=== PATIENT | male | born 1995 | race Caucasian/White ===

== ENCOUNTER → 2018-05-20 15:03 | Outpatient (CLI) | payer OTHER, SELFPAY ==
--- NOTE | 2018-05-20 15:02 | DI.REPORT_ITS ---
SYMPTOMS/DIAGNOSIS: S/P CLOSED REDUCTION AND PERCUTANEOUS PINNING, LEFT RING FINGER LEFT HAND: Three views. Comparison is 05/12/18. There has been no change in alignment of the nondisplaced oblique fracture through the ulnar aspect of the base of the distal phalanx of the left middle finger. There are again seen two percutaneous pins transfixing the fracture of the middle phalanx of the left ring finger. No change in alignment of the orthopedic hardware or fracture components is noted.
== END ==
PROVIDERS: PCP Family Medicine; Visit Provider Physician Assistant
DX: S62.625D Displaced fracture of middle phalanx of left ring finger, subsequent encounter for fracture with routine healing (principal); X58.XXXD Exposure to other specified factors, subsequent encounter
CPT/HCPCS: 73130

== ENCOUNTER → 2018-06-15 08:01 | Outpatient (CLI) | payer OTHER, SELFPAY ==
--- NOTE | 2018-06-15 07:49 | DI.REPORT_ITS ---
SYMPTOM/DIAGNOSIS: F/U FX LEFT HAND: Three views. Comparison is made with 05/20/18. There are again seen two pins transfixing the fracture of the middle phalanx of the left ring finger. The fracture and orthopedic hardware appear stable in alignment. The fracture line is still visualized. There is mild soft tissue swelling of the left ring finger. No new fractures or dislocations are present.
== END ==
PROVIDERS: PCP Family Medicine; Visit Provider Physician Assistant
DX: S62.92XD Unspecified fracture of left hand, subsequent encounter for fracture with routine healing (principal)
CPT/HCPCS: 73130

== ENCOUNTER 2020-07-14 14:42 | Outpatient (CLI) | payer SELFPAY ==
[2020-07-17 17:55] LABS: Patient Race White; SARS-CoV-2 RNA Undetected (Undetected); SARS-CoV-2 Specimen Source Nasopharynx
== END 2020-07-14 15:02 ==
PROVIDERS: PCP Family Medicine; Visit Provider Family Medicine
DX: Z11.59 Encounter for screening for other viral diseases (principal)
CPT/HCPCS: U0003

== ENCOUNTER 2024-01-02 13:42 | Emergency (ER) | payer BC, SELFPAY ==
[2024-01-02 13:46] VITALS: BP 141/84; PULSE 73; RESP 18; TEMP 36.8; O2SAT 98
--- NOTE | 2024-01-02 14:16 | ED.GENADUL_ITS ---
Discharge Plan Disposition Patient Disposition: Home Condition: Stable Discharge Details Clinical Impression: Acute pain of left wrist Primary Care Provider: Yaneli Villanueva ED Provider: Katheryn Mcclelland Discharge Instructions Additional Instructions: Take ibuprofen 400 to 600 mg every 8 hours for the next 5 days, use your splint during the day and you may remove at night while you are sleeping, wear the splint for at least 3 to 5 days see if it improves your discomfort Recommendation for follow-up with primary care physician with persistent pain Return with spreading redness, fever, change in discomfort, you may also apply topical diclofenac gel which is [id number] and take Tylenol 650 every 4-6 hours as needed Referrals: Yaneli Villanueva [Primary Care Provider] - HPI General Date/Time Provider Initiated Documentation: 01/02/24 13:53 . HPI Narrative: 28 year-old male who is otherwise healthy presents with right wrist pain. History of fracture to the affected area 10 years ago now has recurrent pain. 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 Denies any radiating nerve pain or known trauma to the affected area, worse with flexion improved with extension. Denies any swelling Related Data Allergies Allergy/AdvReac Type Severity Reaction Status Date / Time No Known Allergies Allergy Unverified 01/02/24 13:50 General Stated Complaint: Orthopedic SILVANA: 4 Course Vital Signs Vital signs: Vital Signs Temperature 36.8 C 01/02/24 13:46 Pulse 73 01/02/24 13:46 Respiratory Rate 18 01/02/24 13:46 Blood Pressure 141/84 H 01/02/24 13:46 Pulse Oximetry 98 01/02/24 13:46 Temperature 36.8 C 01/02/24 13:46 Temperature Source Skin 01/02/24 13:46 Pulse 73 01/02/24 13:46 Respiratory Rate 18 01/02/24 13:46 Respiratory Effort Normal 01/02/24 13:49 Blood Pressure 141/84 H 01/02/24 13:46 Blood Pressure Position Sitting 01/02/24 13:46 Pulse Oximetry 98 01/02/24 13:46 Oxygen Delivery Method Room Air 01/02/24 13:46 Oxygen Flow Rate 0 01/02/24 13:46 Pain Level 6 01/02/24 13:52 Medical Decision Making 28-year-old male presenting with report of wrist pain, prior fracture, will order x-ray, x-ray does not show evidence of acute abnormality per radiology interpretation and my review Will take ibuprofen and Tylenol as needed pain, will limit use, will wear brace, will follow-up with primary care physician in 1 week with persistent pain Return precautions reviewed and patient expressed understanding, neurovascularly intact, no swelling appreciated or visible signs of trauma to the right wrist, no tenderness to elbow, negative Tinel's sign Quality:SDOH Health Related Social Needs: No Data to Display PFSH All Active Problems (Updated 01/02/24 @ 14:38 by LAURA Oliveira) Acute pain of left wrist (Acute) Social History Smoking/Tobacco Use Status: Never Smoking risk assessment performed?: Yes Alcohol Intake: current Alcohol Intake frequency: a few times a month Drug use: Never Do you feel safe in your relationship?: Yes
--- NOTE | 2024-01-02 14:17 | DI.RAD_ITS ---
Exam(s) XR WRIST RT COMPLETE EXAM: XR WRIST RT COMPLETE CLINICAL HISTORY: right wrist. TECHNIQUE: 2D digital imaging was performed. Three views. COMPARISON: No exams were available for comparison FINDINGS: BONES: No acute fracture is present. No bony destructive lesion is seen. JOINTS: The carpal bones are normally aligned. SOFT TISSUE: Normal. IMPRESSION: Unremarkable radiographs of the right wrist. DATA REPOSITORY: RADIATION DOSE DELIVERED:
== END 2024-01-02 14:55 | disposition home or self-care (01) ==
LOC: ER 15:10
PROVIDERS: Emergency Provider Physician Assistant; PCP Family Medicine
DX: M25.531 Pain in right wrist (principal)
CPT/HCPCS: 99283; 73110

== ENCOUNTER 2024-03-08 13:05 | Outpatient (REF) | payer BC, SELFPAY ==
[2024-03-08 14:58] LABS: Calculated LDL 93 mg/dL (<100); Cholesterol 169 mg/dL (<200); HDL Cholesterol 70 mg/dL (40-60); Triglyceride 31 mg/dL (<150)
== END 2024-03-08 13:06 | disposition home or self-care (01) ==
LOC: NCHCN 13:05
PROVIDERS: PCP Family Medicine; Visit Provider Family Medicine
DX: Z13.220 Encounter for screening for lipoid disorders (principal)
CPT/HCPCS: 80061